=== PATIENT | female | born 1940 | race Asian ===

== ENCOUNTER 2018-02-16 09:54 | Emergency (ER) | payer MEDICARE, OTHER ==
[~2018-02-16] VITALS: Ht 157.5 cm; Wt 86.2 kg
[2018-02-16] MEDS ORDERED: MECLIZINE HCL 25 MG TAB PO ONE (10:00)
[2018-02-16 10:39] LABS: Basophils # (auto) 0 uL; Basophils % (auto) 0.7 % (0.0-2.0); Eosinophils # (auto) 0.2 uL; Eosinophils % (auto) 3.2 % (0.0-7.0); Hematocrit 39.4 % (36.0-46.0); Hemoglobin 13.5 g/dL (12.2-16.2); Lymphocytes # (auto) 0.8 uL; Lymphocytes % (auto) 15.4 % (10.0-50.0); Mean Corpuscular Hgb Conc. 34.2 g/dL (32.0-36.0); Mean Corpuscular Volume 87.8 fL (80.0-100.0); Monocytes # (auto) 0.3 uL; Monocytes % (auto) 5.8 % (0.0-12.0); Neutrophils # (auto) 3.9 uL; Neutrophils % (auto) 74.9 % (37.0-80.0); Nucleated Red Blood Cells % 0.1 %; Platelet Count (auto) 241 10^3/uL (140-450); Red Blood Cells 4.49 10^6/uL (4.0-5.20); Red Cell Distribution Width 14.4 % (11.8-14.3); White Blood Cell 5.2 10^3/uL (4.4-10.8)
[2018-02-16 10:59] LABS: Alanine Aminotransferase 20 U/L (13-56); Albumin 3.5 g/dL (3.4-5.0); Anion Gap 11 (5-15); Aspartate Aminotransferase 12 U/L (15-37); BUN/Creatinine Ratio 24.4; Blood Urea Nitrogen 30 mg/dL (7-18); Calcium 8.2 mg/dL (8.5-10.1); Carbon Dioxide 26 mmol/L (21-32); Chloride 103 mmol/L (98-107); GFR African American 54 mL/min; GFR Non-African American 45 mL/min; Glucose 252 mg/dL (74-106); Sodium 140 mmol/L (136-145)
[2018-02-16 11:04] LABS: Alkaline Phosphatase 81 U/L (45-117); Bilirubin, Total 0.6 mg/dL (0.2-1.0); Total Protein 6.9 g/dL (6.4-8.2)
[2018-02-16] MEDS ORDERED: AML5T PO (11:40)
[2018-02-16] MEDS ORDERED: LEVO50TA7 PO (11:56)
[2018-02-16] MEDS ORDERED: LOSA-49 PO (11:56)
[2018-02-16] MEDS ORDERED: ATOR10TA52 PO (11:56)
[2018-02-16] MEDS ORDERED: DONE5TAB31 PO (11:56)
[2018-02-16] MEDS ORDERED: FURO20TA PO (11:56)
[2018-02-16] MEDS ORDERED: METF-371 PO (11:56)
[2018-02-16] MEDS ORDERED: NIFE30TA76 PO (11:56)
[2018-02-16] MEDS ORDERED: TRAM50TA2 PO (11:56)
[2018-02-16] MEDS ORDERED: FEBU40TA PO (11:56)
[2018-02-16] MEDS ORDERED: CARV25TA PO (11:56)
[2018-02-16] MEDS ORDERED: PIOG15TA38 PO (11:56)
[2018-02-16] MEDS ORDERED: CLON0.1T PO (11:56)
[2018-02-16] MEDS ORDERED: EZET10TA6 PO (11:56)
[2018-02-16] MEDS ORDERED: CARI-277 PO (11:56)
[2018-02-16 11:57] VITALS: BP 110/49
== END 2018-02-16 11:45 | disposition home or self-care (01) ==
LOC: ER 09:54 → EDBD 09:54 → ER 11:45
DX: R42 Dizziness and giddiness (principal); I11.0 Hypertensive heart disease with heart failure; I50.9 Heart failure, unspecified; E11.9 Type 2 diabetes mellitus without complications; Z88.8 Allergy status to other drugs, medicaments and biological substances
CPT/HCPCS: 36415; 70450; 80053; 83880; 84484; 85025; 93005; 99285; J8597

== ENCOUNTER 2021-10-11 11:12 | Inpatient (IN) | payer MEDICARE, OTHER ==
[~2021-10-11] VITALS: Ht 152.4 cm; Wt 71.7 kg
[~2021-10-11 11:12] MED LIST: AML5T PO; ATOR10TA52 PO; CARI-277 PO; CARV25TA PO; CLON0.1T PO; DONE5TAB80 PO; EZET10TA22 PO; FEBU40TA PO; FURO1TAB33 PO; LEVO50TA7 PO; LOSA-39 PO; METF-371 PO; NIFE1TAB31 PO; PIOG15TA38 PO; TRAM50TA2 PO
[2021-10-11] MEDS ORDERED: ASPirin 81 mg TAB PO ONE (12:00)
[2021-10-11 12:11] LABS: Basophils # (auto) 0.1 10 ^3/uL (0-0.2); Basophils % (auto) 2.2 % (0.0-2.0); Eosinophils # (auto) 0.1 10 ^3/uL (0-0.8); Eosinophils % (auto) 1.2 % (0.0-7.0); Hematocrit 35.3 % (36.0-46.0); Hemoglobin 12.1 g/dL (12.2-16.2); Lymphocytes # (auto) 0.6 10 ^3/uL (0.4-5.4); Mean Corpuscular Hemoglobin 29.2 pg (28.0-32.0); Mean Corpuscular Hgb Conc. 34.2 g/dL (32.0-36.0); Mean Corpuscular Volume 85.3 fL (80.0-100.0); Monocytes # (auto) 0.3 10 ^3/uL (0-1.3); Monocytes % (auto) 5.3 % (0.0-12.0); Neutrophils # (auto) 3.7 10 ^3/uL (1.6-8.6); Neutrophils % (auto) 78.3 % (37.0-80.0); Nucleated Red Blood Cells % 0.1 %; Red Blood Cells 4.14 10^6/uL (4.0-5.20); Red Cell Distribution Width 13.6 % (11.8-14.3); White Blood Cell 4.7 10^3/uL (4.4-10.8)
[2021-10-11 12:29] LABS: Potassium 4.8 mmol/L (3.5-5.1)
[2021-10-11 12:35] LABS: Albumin 3.5 g/dL (3.4-5.0); BUN/Creatinine Ratio 22.4; Calcium 9.2 mg/dL (8.5-10.1)
[2021-10-11 12:40] LABS: Bilirubin, Total 0.6 mg/dL (0.2-1.0); Total Protein 6.3 g/dL (6.4-8.2)
[2021-10-11] MEDS ORDERED: MORPHINE SULFATE INJ 2 MG/ml SYRG IV PRN ×2 (18:00→18:30)
[2021-10-11] MEDS ORDERED: NITROGLYCERIN 0.4 MG SL TAB SL PRN (18:00)
[2021-10-11] MEDS ORDERED: DEXTROSE (50%) 50ML SYRG IV PRN (18:15)
[2021-10-11] MEDS ORDERED: LABETALOL HCL 5 MG/ML 4ML SYRINGE IV PRN (18:15)
[2021-10-11] MEDS ORDERED: hydrALAZINE HCL 20 MG/ML VL IV PRN (18:15)
[2021-10-11] MEDS ORDERED: IOHEXOL 350 MG/ML 100ML IJ ONE (18:18)
[2021-10-11] MEDS ORDERED: HYDROcodone-ACET 5/325MG TAB PO PRN (18:30)
[2021-10-11] MEDS ORDERED: ONDANSETRON HCL 4 MG/2 ML VIAL IV PRN (18:30)
[2021-10-11] MEDS ORDERED: ACETAMINOPHEN 325 MG TAB PO PRN (18:30)
[2021-10-11] MEDS ORDERED: LORazepam 0.5 MG TAB PO PRN (18:30)
[2021-10-11] MEDS ORDERED: DOCUSATE SOD 100 MG CAP PO PRN (18:30)
[2021-10-11] MEDS ORDERED: BENAZEPRIL HCL 10 MG TAB PO ONE (18:30)
[2021-10-11] MEDS: LACTATED RINGER'S 1,000 ML IV SCH (18:52)
[2021-10-11 18:59] LABS: Magnesium 1.6 mg/dL (1.6-2.6)
[2021-10-11 19:13] LABS: INR 1.05 (0.9-1.15); Partial Thromboplastin Time 28.5 sec (23.6-33.0)
[2021-10-11] MEDS: MAGNESIUM SULFATE 1GM/100ML 100 ML IV SCH ×2 (20:17→22:52)
[2021-10-11] MEDS: InsuLIN REG 1unit/0.01ml Soln (100units/ml) SC SCH (22:00)
[2021-10-11] MEDS: ISOSORBIDE MONONITRATE 20 MG TAB PO SCH (22:31)
[2021-10-11] MEDS: ATORVASTATIN 20 MG TAB PO SCH (22:31)
[2021-10-11] MEDS: CARVEDILOL 3.125 MG TAB PO SCH (22:31)
[2021-10-11] MEDS: ACCU-CHEK COMFORT CURVE STRIP VI SCH (22:32)
[2021-10-11] MEDS: MAGNESIUM OXIDE 400 MG TAB PO SCH (22:32)
[2021-10-11] MEDS: CARISOPRODOL 350 MG TAB PO SCH (22:32)
[2021-10-11] MEDS ORDERED: MAGNESIUM SULFATE 1GM/100ML 100 ML IV SCH (23:45)
[2021-10-12] VITALS (7 sets, daily range): BP systolic 119–164; BP diastolic 51–90
[2021-10-12 05:21] LABS: Alcohol, Urine < 3.0 mg/dL (0-10); Amphetamine Screen, Urine NEGATIVE (NEGATIVE); Barbiturate Scree,Urine NEGATIVE (NEGATIVE); Benzodiazephine Screen, Urine NEGATIVE (NEGATIVE); Cannabinoid Screen, Urine NEGATIVE (NEGATIVE); Cocaine Screen, Urine NEGATIVE (NEGATIVE); Opiate Scree,Urine NEGATIVE (NEGATIVE); Phencyclidine Screen, Urine NEGATIVE (NEGATIVE); Protein, Urine 6.4 mg/dL (0.0-11.9)
[2021-10-12] MEDS: FUROSEMIDE 20 MG/2 ML VIAL IV SCH ×2 (05:50→17:40)
[2021-10-12 05:52] LABS: Urine Bacteria FEW /hpf (None Seen); Urine Blood Negative /uL (Negative); Urine WBC 2 /hpf (0 - 5)
[2021-10-12] MEDS: LEVOTHYROXINE SODIUM 50 MCG TAB PO SCH (06:40)
[2021-10-12] MEDS: InsuLIN REG 1unit/0.01ml Soln (100units/ml) SC SCH ×4 (06:40→22:04)
[2021-10-12] MEDS: ACCU-CHEK COMFORT CURVE STRIP VI SCH ×4 (06:40→21:55)
[2021-10-12] MEDS: MAGNESIUM OXIDE 400 MG TAB PO SCH ×2 (09:37→21:54)
[2021-10-12] MEDS: ASPirin 81 mg TAB PO SCH (09:37)
[2021-10-12] MEDS: ISOSORBIDE MONONITRATE 20 MG TAB PO SCH ×2 (09:37→21:54)
[2021-10-12] MEDS: ENOXAPARIN SOD 40 MG/0.4 ML SYRINGE SC SCH (09:37)
[2021-10-12] MEDS: CARVEDILOL 3.125 MG TAB PO SCH ×2 (09:38→21:53)
[2021-10-12] MEDS: NIFEdipine ER 30 MG TAB PO SCH (09:38)
[2021-10-12] MEDS: BENAZEPRIL HCL 10 MG TAB PO SCH (09:38)
[2021-10-12] MEDS: FAMOTIDINE (10MG/ML) 2ML VL IV SCH (09:39)
[2021-10-12 10:49] LABS: Basophils # (auto) 0 10 ^3/uL (0-0.2); Basophils % (auto) 0.7 % (0.0-2.0); Eosinophils # (auto) 0.1 10 ^3/uL (0-0.8); Eosinophils % (auto) 1.8 % (0.0-7.0); Hematocrit 34.5 % (36.0-46.0); Hemoglobin 11.6 g/dL (12.2-16.2); Lymphocytes # (auto) 0.4 10 ^3/uL (0.4-5.4); Lymphocytes % (auto) 9.8 % (10.0-50.0); Mean Corpuscular Hemoglobin 29.1 pg (28.0-32.0); Mean Corpuscular Hgb Conc. 33.7 g/dL (32.0-36.0); Mean Corpuscular Volume 86.3 fL (80.0-100.0); Monocytes # (auto) 0.3 10 ^3/uL (0-1.3); Monocytes % (auto) 6.3 % (0.0-12.0); Neutrophils # (auto) 3.7 10 ^3/uL (1.6-8.6); Neutrophils % (auto) 81.4 % (37.0-80.0); Nucleated Red Blood Cells % 0.1 %; Red Cell Distribution Width 13.8 % (11.8-14.3); White Blood Cell 4.6 10^3/uL (4.4-10.8)
[2021-10-12 11:23] LABS: INR 1.03 (0.9-1.15); Partial Thromboplastin Time 27.4 sec (23.6-33.0)
[2021-10-12 11:45] LABS: Albumin 3.3 g/dL (3.4-5.0); Calcium 8.9 mg/dL (8.5-10.1); Magnesium 2.2 mg/dL (1.6-2.6); Potassium 3.9 mmol/L (3.5-5.1); Uric Acid 6.5 mg/dL (2.6-6.0)
[2021-10-12 11:50] LABS: BUN/Creatinine Ratio 19.5; Bilirubin, Total 0.6 mg/dL (0.2-1.0); CRP High Sensitivity 0.18 mg/dL (< 0.3); Phosphorus 4.2 mg/dL (2.5-4.90); Total Protein 6.7 g/dL (6.4-8.2)
[2021-10-12] MEDS: LACTATED RINGER'S 1,000 ML IV SCH (18:15)
[2021-10-12] MEDS: ATORVASTATIN 20 MG TAB PO SCH (21:54)
[2021-10-12] MEDS: CARISOPRODOL 350 MG TAB PO SCH (21:55)
[2021-10-13 05:00] VITALS: BP 117/46
[2021-10-13] MEDS: FUROSEMIDE 20 MG/2 ML VIAL IV SCH ×2 (05:49→17:40)
[2021-10-13] MEDS: InsuLIN REG 1unit/0.01ml Soln (100units/ml) SC SCH ×4 (06:27→21:25)
[2021-10-13] MEDS: ACCU-CHEK COMFORT CURVE STRIP VI SCH ×4 (06:27→21:09)
[2021-10-13] MEDS: LEVOTHYROXINE SODIUM 50 MCG TAB PO SCH (06:27)
[2021-10-13 08:00] VITALS: BP 138/66
[2021-10-13] MEDS ORDERED: ADENOSINE 59 MG in GIVE UN-DILUTED 0 ML IV STA (08:12)
[2021-10-13 08:30] VITALS: BP 133/85
[2021-10-13] MEDS: FAMOTIDINE (10MG/ML) 2ML VL IV SCH (09:18)
[2021-10-13] MEDS: MAGNESIUM OXIDE 400 MG TAB PO SCH ×2 (09:19→21:34)
[2021-10-13] MEDS: BENAZEPRIL HCL 10 MG TAB PO SCH (09:19)
[2021-10-13] MEDS: ASPirin 81 mg TAB PO SCH (09:20)
[2021-10-13] MEDS: CARVEDILOL 3.125 MG TAB PO SCH ×2 (09:20→21:34)
[2021-10-13] MEDS: NIFEdipine ER 30 MG TAB PO SCH (09:20)
[2021-10-13] MEDS: ISOSORBIDE MONONITRATE 20 MG TAB PO SCH ×2 (09:21→21:34)
[2021-10-13] MEDS: ENOXAPARIN SOD 40 MG/0.4 ML SYRINGE SC SCH (09:21)
[2021-10-13 12:41] VITALS: BP 155/81
[2021-10-13 17:07] VITALS: BP 135/65
[2021-10-13] MEDS: LACTATED RINGER'S 1,000 ML IV SCH (18:12)
[2021-10-13] MEDS ORDERED: cefTRIAXone 1GM/50ML D5W 50 ML IV ONE (20:15)
[2021-10-13] MEDS: ATORVASTATIN 20 MG TAB PO SCH (21:34)
[2021-10-13] MEDS: CARISOPRODOL 350 MG TAB PO SCH (21:35)
[2021-10-13 22:00] VITALS: BP 116/60
[2021-10-14 05:00] VITALS: BP 129/68
[2021-10-14] MEDS: LEVOTHYROXINE SODIUM 50 MCG TAB PO SCH (06:09)
[2021-10-14] MEDS: FUROSEMIDE 20 MG/2 ML VIAL IV SCH (06:09)
[2021-10-14] MEDS: ACCU-CHEK COMFORT CURVE STRIP VI SCH ×3 (06:10→17:33)
[2021-10-14] MEDS: InsuLIN REG 1unit/0.01ml Soln (100units/ml) SC SCH ×3 (06:17→17:00)
[2021-10-14 09:00] VITALS: BP 144/97
[2021-10-14] MEDS ORDERED: cefTRIAXone 1GM/50ML D5W 50 ML IV SCH (09:00)
[2021-10-14] MEDS: FAMOTIDINE (10MG/ML) 2ML VL IV SCH (09:07)
[2021-10-14] MEDS: ASPirin 81 mg TAB PO SCH (09:07)
[2021-10-14] MEDS: ENOXAPARIN SOD 40 MG/0.4 ML SYRINGE SC SCH (09:07)
[2021-10-14] MEDS: MAGNESIUM OXIDE 400 MG TAB PO SCH (09:07)
[2021-10-14] MEDS: ISOSORBIDE MONONITRATE 20 MG TAB PO SCH (09:08)
[2021-10-14] MEDS: CARVEDILOL 3.125 MG TAB PO SCH (09:09)
[2021-10-14] MEDS: BENAZEPRIL HCL 10 MG TAB PO SCH (09:09)
[2021-10-14] MEDS: NIFEdipine ER 30 MG TAB PO SCH (09:09)
[2021-10-14 13:00] VITALS: BP 121/68
[2021-10-14] MEDS ORDERED: CEPH-509 PO (13:58)
[2021-10-14 16:45] VITALS: BP 125/55
[2021-10-15] MEDS ORDERED: COLCHICINE 0.6 MG CAP PO SCH (10:00)
== END 2021-10-14 19:11 | disposition home or self-care (01) | DRG 313 ==
LOC: ER 11:12 → TELE 17:57 → TELE-WESTW 22:02
PROVIDERS: ADMIT Hospitalist; ATTEND Internal Medicine Geriatric Medicine
DX: R07.89 Other chest pain (principal); N39.0 Urinary tract infection, site not specified; I50.32 Chronic diastolic (congestive) heart failure; R55 Syncope and collapse; I11.0 Hypertensive heart disease with heart failure; E66.01 Morbid (severe) obesity due to excess calories; E78.5 Hyperlipidemia, unspecified; G30.9 Alzheimer's disease, unspecified; F02.80 Dementia in other diseases classified elsewhere, unspecified severity, without behavioral disturbance, psychotic disturbance, mood disturbance, and anxiety; E11.9 Type 2 diabetes mellitus without complications; D64.9 Anemia, unspecified; E03.9 Hypothyroidism, unspecified; Z20.822 Contact with and (suspected) exposure to COVID-19; G89.4 Chronic pain syndrome; M19.90 Unspecified osteoarthritis, unspecified site; M1A.9XX0 Chronic gout, unspecified, without tophus (tophi); Z79.899 Other long term (current) drug therapy; Z81.1 Family history of alcohol abuse and dependence; Z86.73 Personal history of transient ischemic attack (TIA), and cerebral infarction without residual deficits; Z63.72 Alcoholism and drug addiction in family; Z88.8 Allergy status to other drugs, medicaments and biological substances; Z68.30 Body mass index [BMI] 30.0-30.9, adult
CPT/HCPCS: 36415; 71046; 71275; 78452; 80053; 80061; 80307; 81001; 82550; 82728; 82962; 83036; 83615; 83690; 83735; 83880; 84100; 84156; 84439; 84443; 84484; 84550; 85025; 85379; 85610; 85652; 85730; 86141; 87040; 87086; 87088; 87186; 93005; 93017; 93306; 93886; 96360; G0378; J0153; J0696; J1815; J3490